=== PATIENT | male | born 1950 | race Caucasian/White ===

== ENCOUNTER → 2020-10-15 | Outpatient (CLI) | payer MEDICARE, OTHER ==
--- NOTE | 2020-10-15 13:04 | REPVR ---
PROCEDURE INFORMATION: Exam: MR Head Without Contrast Exam date and time: 10/15/2020 10:28 AM Age: 70 years old Clinical indication: Pain; Headache; Additional info: Mcfarland's, gait impairment TECHNIQUE: Imaging protocol: MR of the head without contrast. COMPARISON: No relevant prior studies available. FINDINGS: Brain: There is no acute intracranial hemorrhage, cerebral edema, or midline shift. No restricted diffusion is present to suggest acute infarction. Minimal chronic small vessel ischemic disease is present in the cerebral white matter. Cerebral ventricles: No hydrocephalus. Bones/joints: Unremarkable. Paranasal sinuses: There is mild mucosal thickening in the left maxillary sinus. Mastoid air cells: Normal as visualized. No mastoid effusion. Orbital cavity: Unremarkable. Soft tissues: Unremarkable. IMPRESSION: No acute intracranial abnormality. Electronically signed by: Srikanth Paiz On 10/15/2020 13:04:20 PM
== END ==
LOC: M PLAIMG 09:32
PROVIDERS: ATTEND Internal Medicine
DX: R51.9 Headache, unspecified (principal)

== ENCOUNTER → 2021-11-07 | Outpatient (CLI) | payer MEDICARE, OTHER ==
[2021-11-07 17:08] LABS: THYROID STIMULATING HORMONE 1.75 uIU/ML (0.358-3.740)
[2021-11-07 17:43] LABS: FOLATE 15.3 NG/ML
== END ==
LOC: M WUC 14:32
PROVIDERS: ATTEND Psychiatry & Neurology Neurology
DX: R51.9 Headache, unspecified (principal); E03.9 Hypothyroidism, unspecified; F19.10 Other psychoactive substance abuse, uncomplicated; E53.8 Deficiency of other specified B group vitamins

== ENCOUNTER → 2022-06-29 | Outpatient (CLI) | payer MEDICARE, OTHER ==
[2022-06-29 20:10] LABS: FOLATE 10.5 NG/ML (>5.4)
== END ==
LOC: M WUC 14:58
PROVIDERS: ATTEND Psychiatry & Neurology Neurology
DX: R51.9 Headache, unspecified (principal); E53.9 Vitamin B deficiency, unspecified

== ENCOUNTER 2024-03-24 08:50 | Day surgery (SDC) | payer MEDICARE, OTHER ==
[~2024-03-24] VITALS: Ht 185.4 cm; Wt 94.2 kg
[2024-03-24] MEDS ORDERED: LIDOCAINE 2% 100MG/5ML SDV (FOR ANES.) As Ordered ONE (09:14)
[2024-03-24] MEDS ORDERED: propofoL 200 MG/20 ML VIAL As Ordered ONE (09:46)
[2024-03-24 11:30] VITALS: BP 144/70; TEMP 97.7; O2SAT 96
== END 2024-03-24 11:41 | disposition home or self-care (01) ==
LOC: M OPP 08:50
PROVIDERS: ATTEND Surgery
DX: Z12.11 Encounter for screening for malignant neoplasm of colon (principal); Z12.12 Encounter for screening for malignant neoplasm of rectum; Q43.8 Other specified congenital malformations of intestine; Z90.49 Acquired absence of other specified parts of digestive tract; I10 Essential (primary) hypertension; Z87.891 Personal history of nicotine dependence

== ENCOUNTER → 2024-03-29 | Outpatient (REF) | payer MEDICARE, OTHER | LOC: M LAB REF 16:48 | PROVIDERS: ATTEND Surgery | DX: L72.3 Sebaceous cyst (principal) ==